=== PATIENT | male | born 1960 | race Caucasian/White ===

== ENCOUNTER 2017-11-05 11:44 | Day surgery (SDC) | payer OTHER ==
[~2017-11-05] VITALS: Ht 170.2 cm; Wt 88.0 kg
[~2017-11-05 11:44] MED LIST: ATARAX,VISTARIL25 MG PO; BUSPAR15 MG PO; CENTRUM COMPLE1 EACH PO; CYMBALTA60 MG PO; ELAVIL25 MG PO; LO-DOSE ASPIRIN81 M2 PO; NEURONTIN400 MG PO; RELAFEN500 M1 PO; TENORMIN50 MG PO; WELLBUTRIN XL300 MG PO; ZANAFLEX4 M1 PO
[2017-11-05 12:51] VITALS: BP 137/90
[2017-11-05 17:00] VITALS: BP 156/91
[2017-11-05 17:35] VITALS: BP 161/90
== END 2017-11-05 17:37 | disposition home or self-care (01) ==
LOC: SDC 11:44
PROC: 0Y6M0Z9 Detachment at Right Foot, Partial 1st Ray, Open Approach (ICD-10-PCS; principal; 2017-11-05)
DX: G89.21 Chronic pain due to trauma (principal); M21.6X1 Other acquired deformities of right foot; S98.921 Partial traumatic amputation of right foot, level unspecified; M20.10 Hallux valgus (acquired), unspecified foot; I10 Essential (primary) hypertension; E78.00 Pure hypercholesterolemia, unspecified; D75.1 Secondary polycythemia; Z79.82 Long term (current) use of aspirin; Z82.3 Family history of stroke; Z82.49 Family history of ischemic heart disease and other diseases of the circulatory system; Z82.0 Family history of epilepsy and other diseases of the nervous system; F17.200 Nicotine dependence, unspecified, uncomplicated
CPT/HCPCS: 88302; J0131; J0690; J1885; J2250; J3010; S0020

== ENCOUNTER 2018-01-05 08:41 | Day surgery (SDC) | payer OTHER ==
[~2018-01-05] VITALS: Ht 170.2 cm; Wt 88.0 kg
[~2018-01-05 08:41] MED LIST changes: +MS CONTIN,ORAMO30 MG PO; +ROXICODONE15 MG PO
== END 2018-01-05 10:35 | disposition home or self-care (01) ==
LOC: PAIN 08:41 → SDC 10:00 → PAIN 10:00
DX: M47.816 Spondylosis without myelopathy or radiculopathy, lumbar region (principal); M51.06 Intervertebral disc disorders with myelopathy, lumbar region; M48.061 Spinal stenosis, lumbar region without neurogenic claudication; G89.29 Other chronic pain; I10 Essential (primary) hypertension; Z79.82 Long term (current) use of aspirin; Z79.891 Long term (current) use of opiate analgesic; F17.200 Nicotine dependence, unspecified, uncomplicated
CPT/HCPCS: J1030; J2250; S0020